=== PATIENT | female | born 1955 | race Caucasian/White ===

== ENCOUNTER 2016-06-24 08:52 | Emergency (ER) | payer OTHER ==
[~2016-06-24] VITALS: Ht 165.1 cm; Wt 83.9 kg
[~2016-06-24 08:52] MED LIST: ACIDOPHILUS1 CAP PO; BENZONATATE200 M1 PO; BIAXIN FILMTAB500 MG PO; CO-Q1060 MG PO; CYTOMEL25 MC1 PO; DELTASONE20 MG PO; DIAZEPAM5 MG PO; DIETHYLPROPION25 MG PO; FLONASE120 SPRAY/ NAS; FLUCONAZOLE150 M1 PO; HYDROXYZINE HCL50 MG PO; INDAPAMIDE2.5 M1 PO; PHENERGAN25 M1 PO; PREDNISONE 10MG10 M1 PO; PROVENTIL HFA6.7 GM INH; TESSALON PERLE100 MG PO; VITAMIN C100 M1 PO; VITAMIN C500 M3 PO; XANAX1 M1 PO; ZITHROMAX250 M2 PO; [UNRECOGNIZED DRUG - OTHER] PO
[2016-06-24 08:55] VITALS: BP 119/82
--- NOTE | 2016-06-24 09:10 | ED DYSPNEA/ASTHMA COMPLAINT ---
History of Present Illness General Chief Complaint: Upper Respiratory Sx/Fever Stated Complaint: DX WITH PNA WEDNESDAY/EAR AND THROAT PAIN,SOB 99%O2 Source: patient, family Exam Limitations: no limitations Vital Signs & Intake/Output Vital Signs & Intake/Output Vital Signs Date Time Temp Pulse Resp B/P B/P Pulse O2 O2 Flow FiO2 Mean Ox Delivery Rate 06/24 0942 95 06/24 0855 99.3 91 16 119/82 98 Room Air Allergies Coded Allergies: codeine (Severe, RASH 04/15/15) latex (Mild, RASH 04/15/15) hydromorphone (From DILAUDID) (Mild, VOMITING 04/15/15) Reconcile Medications Albuterol Sulfate (Proair Hfa) 90 MCG HFA.AER.AD 2 PUF INH Q4-6 PRN PRN wheezing Benzonatate 100 MG CAPSULE 1 CAP PO TID PRN COUGH (Reported) Cefdinir 300 MG CAPSULE 2 CAP PO DAILY ANTIBIOTIC, INFECTION (Reported) Diethylpropion HCl 25 MG TABLET 3 TAB PO DAILY THYROID (Reported) Doxycycline Hyclate 100 MG TABLET 1 TAB PO BID ANTIBIOTIC, INFECTION ( Reported) Indapamide 2.5 MG TABLET 1 TAB PO DAILY HTN (Reported) Liothyronine Sodium (Cytomel) 25 MCG TABLET 2-3 TAB PO DAILY THYROID ( Reported) Methylprednisolone. (Medrol) 4 MG TAB.DS.PK 1 DP PO AD bronchitis 6 on day 1 then reduce by one tablet daily until gone Triage Note: 60 Y/O FEMALE C/O SOB AND NAUSEA. STATES SHE WAS EVAL'D AT WALK IN ON 06/22/16 AND DIAGNOSED WITH PNEUMONIA (NO XRAY DONE); STARTED ON DOXYCYCLINE, CEFDINIR AND TESSLON PEARLS BUT REPORTS CONTINUED SOB AND NOW NAUSEA. VOICE HOARSE. SAT 97-98% RA. PT REPORTS FEVERS AT HOME, 99.3 IN TRIAGE. Triage Nurses Notes Reviewed? yes HPI: 60-year-old female with history of hypothyroid presents to ER for evaluation complaining of a four-day history of productive cough clear sputum and shortness of breath sore throat and rhinorrhea congestion, hoarse voice and sinus pressure. She states she went to an urgent care 2 days ago was diagnosed with pneumonia. She was started on doxycycline and Cefdinir and Tessalon Perles which she's been taking without any improvement. She does not smoke no chest pain no hemoptysis. The patient reports a subjective fevers chills area she has a sick contact at home with similar symptoms last week and is now improved. She states that the coughing is making her nauseous she denies any vomiting diarrhea or abdominal pain. She is not taken anything for her fever chills today. (GABO YOUNG) Past History Travel History Traveled to [place] past 21 day No Medical History Any Pertinent Medical History? 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 No (GABO YOUNG) Review of Systems Review of Systems Constitutional: Reports: see HPI. All Other Systems: Reviewed and Negative Comments Review of systems: See HPI, All other systems negative. Constitutional, no chills no fever, no malaise HEENT: No visual changes sore throat congestion, Cardiovascular: No chest pain , no palpitation Skin: no rashes, no change in skin Respiratory: dyspnea cough sputum GI: nausea no vomiting, no diarrhea, : No dysuria Muscle skeletal: No joint pain, no joint swelling, no back pain, no neck pain, Neurologic: No numbness no headache Psych: No stress no depression,. Heme/endocrine: No bruising no bleeding Immunology: No lymphadenopathy (GABO YOUNG) Physical Exam Physical Exam General Appearance: well developed/nourished, alert, awake Respiratory: chest non-tender Comments: Well-developed well-nourished person in no acute distress Head/Face: Atraumatic, no maxillary/frontal sinus tenderness, no facial swelling Eyes: PERRL, EOMI, no conjunctival injection. No nystagmus Ear:External auditory canal and Tympanic membranes clear, no erythema, no FB. Nose: atraumatic.Normal inspection: No bleeding, no septal hematoma Throat: Moist mucous membranes.pharynx is erythematous tonsillar exudate. No stridor/drooling or assymetry. No swelling or edema. Neck: Supple, no lymphadenopathy, FROM Back: Nontender, no CVA tenderness. Full range of motion Cardiovascular: Regular rate and rhythms no murmurs rubs Respiratory: Chest nontender.There were no bony deformities, no asymmetry. No respiratory distress. Patient speaking in full complete sentences. Wheezing no rhonchi no rales Abdomen: Soft, nontender nondistended Extremity: No edema, full range of motion of extremities Neuro: Alert oriented x3, motor sensory normal. There were no obvious focal neurologic abnormalities. Skin: No appreciable rash on exposed skin, skin is warm and dry. Psych: Mood and affect is normal, memory and judgment is normal. Core Measures ACS in differential dx? No Severe Sepsis Present: No Septic Shock Present: No (GABO YOUNG) Progress Differential Diagnosis: asthma, AMI, bronchitis, costochondritis, CHF, COPD, pericarditis, pulmonary embolism, pneumonia, pneumothorax Plan of Care: Orders Procedure Date/time Status AEROSOL (GEN) 06/24 936 Complete THROAT CULTURE W/QUICK STREP 06/24 916 Active DuoNeb ordered prednisone 60 by mouth Zofran 4 ODT chest x-ray ordered Case discussed with Dr. aguilar agrees with plan Discussed with patient her lab results and x-ray findings she reports to feeling improved after breathing treatment I discussed with her to continue her antibiotic I had an extensive conversation regarding need for close follow up with their primary care physician this week as well as return precautions. I answered all of their questions, they feel comfortable with the plan and follow-up care. I discussed the medications that they will receive with the patient. I gave them signs and symptoms that could indicate an adverse reaction. I have advised them to limit their activities until they can see how they respond to the medication. (GABO YOUNG) Diagnostic Imaging: Viewed by Me: Radiology Read. Discussed w/RAD: Radiology Read. Radiology Impression: PATIENT: ANKIT KLEIN PRESENT AGE: 60 PATIENT ACCOUNT NO: [id number] : 55 LOCATION: [facility] ORDERING PHYSICIAN: GABO HASTINGS SERVICE DATE: 06/24/16 EXAM TYPE: RAD - XRY- CHEST XRAY, PA AND LATERAL EXAMINATION: XR CHEST CLINICAL INFORMATION: Cough, fever and dyspnea. COMPARISON: Chest 05/11/2015. TECHNIQUE: 2 views of the chest were obtained. FINDINGS: Both lungs are fairly well-expanded and clear of acute process. Heart size and pulmonary vascularity is normal. There is mild dextroscoliosis of dorsal spine. No lytic process seen. IMPRESSION: Unremarkable chest exam. DICTATED BY: MIKE ORELLANA MD DATE/TIME DICTATED:06/24/16954 CUSTOMS IMPORT SPECIALIST:MARCY DATE/TIME TRANSCRIBED:06/24/16954 CONFIDENTIAL, DO NOT COPY WITHOUT APPROPRIATE AUTHORIZATION. <Electronically signed in Other Vendor System> SIGNED BY: MIKE ORELLANA MD 06/24/16958 Initial ED EKG: none (GABO YOUNG) Departure Departure Time of Disposition: 1035 Disposition: HOME OR SELF CARE Condition: Stable Clinical Impression Primary Impression: Bronchitis Referrals: ELLIOT MARTEL DO (PCP/Family) Additional Instructions: Continue the antibiotics as prescribed. medrol dose shari, proair inhaler as directed. follow up with your pmd tomorrow, return to the ER with any concerns These were sent to [facility] Departure Forms: Customer Survey General Discharge Information Prescriptions: Current Visit Scripts Methylprednisolone. (Medrol) 1 DP PO AD #1 DP 6 on day 1 then reduce by one tablet daily until gone Albuterol Sulfate (Proair Hfa) 2 PUF INH Q4-6 PRN PRN wheezing #1 INHAL (GABO YOUNG) PA/ARMAMENT MECHANIC Co-Sign Statement Statement: ED Attending supervision documentation- [] I saw and evaluated the patient. I have also reviewed all the pertinent lab results and diagnostic results. I agree with the findings and the plan of care as documented in the PA's/ARMAMENT MECHANIC's documentation. [x] I have reviewed the ED Record and agree with the PA's/ARMAMENT MECHANIC's documentation. [] Additions or exceptions (if any) to the PAs/ARMAMENT MECHANIC's note and plan are summarized below: [] (ARMAAN AGUILAR DO) Critical Care Note Critical Care Note Critical Care Time: non-applicable (GABO YOUNG)
--- NOTE | 2016-06-24 09:59 | RADIOLOGY REPORT ---
EXAMINATION: XR CHEST CLINICAL INFORMATION: Cough, fever and dyspnea. COMPARISON: Chest 05/11/2015. TECHNIQUE: 2 views of the chest were obtained. FINDINGS: Both lungs are fairly well-expanded and clear of acute process. Heart size and pulmonary vascularity is normal. There is mild dextroscoliosis of dorsal spine. No lytic process seen. IMPRESSION: Unremarkable chest exam.
[2016-06-24] MEDS ORDERED: DOXYCYCLINE HY100 M4 PO (10:22)
[2016-06-24] MEDS ORDERED: CEFDINIR300 M1 PO (10:22)
[2016-06-24] MEDS ORDERED: BENZONATATE100 M1 PO (10:22)
[2016-06-24] MEDS ORDERED: MEDROL4 M2 PO (10:37)
[2016-06-24] MEDS ORDERED: PROAIR HFA8.5 GM INH (10:37)
== END 2016-06-24 11:16 ==
LOC: ERH 08:52
DX: J40 Bronchitis, not specified as acute or chronic (principal); J02.9 Acute pharyngitis, unspecified
CPT/HCPCS: 1263; J3101

== ENCOUNTER 2016-07-01 18:59 | Emergency (ER) | payer OTHER ==
[~2016-07-01] VITALS: Ht 166.4 cm; Wt 85.3 kg
[~2016-07-01 18:59] MED LIST changes: +BENZONATATE100 M1 PO; +CEFDINIR300 M1 PO; +DOXYCYCLINE HY100 M4 PO; +MEDROL4 M2 PO; +PROAIR HFA8.5 GM INH
--- NOTE | 2016-07-01 19:51 | ED INFLUENZA/URI COMPLAINT ---
History of Present Illness General Chief Complaint: Upper Respiratory Sx/Fever Stated Complaint: URI/SOB Source: patient Exam Limitations: no limitations Vital Signs & Intake/Output Vital Signs & Intake/Output Vital Signs Date Time Temp Pulse Resp B/P B/P Pulse O2 O2 Flow FiO2 Mean Ox Delivery Rate 07/01 2125 97.0 89 18 106/56 97 Room Air Room Air 07/01 1907 96.5 99 16 119/75 97 Room Air ED Intake and Output 07/02 0000 07/01 1200 Intake Total Output Total Balance Patient 188 lb Weight Weight Reported by Patient Measurement Method Allergies Coded Allergies: codeine (Severe, RASH 04/15/15) latex (Mild, RASH 04/15/15) hydromorphone (From DILAUDID) (Mild, VOMITING 04/15/15) Reconcile Medications Albuterol Sulfate (Proair Hfa) 90 MCG HFA.AER.AD 2 PUF INH Q4-6 PRN PRN wheezing Azithromycin (Zithromax) 250 MG TABLET 1 DP PO AD BRONCHITIS 2 the first day followed by 1 for days 2-5 Benzonatate 100 MG CAPSULE 1 CAP PO TID PRN COUGH (Reported) Cefdinir 300 MG CAPSULE 2 CAP PO DAILY ANTIBIOTIC, INFECTION (Reported) Diethylpropion HCl 25 MG TABLET 3 TAB PO DAILY THYROID (Reported) Doxycycline Hyclate 100 MG TABLET 1 TAB PO BID ANTIBIOTIC, INFECTION ( Reported) Hydrocodone/Chlorphen P-Stirex (Tussionex Pennkinetic Susp) 10 MG-8 MG/5 ML [place].ER.12H 5 ML PO Q12HR PRN COUGH Indapamide 2.5 MG TABLET 1 TAB PO DAILY HTN (Reported) Liothyronine Sodium (Cytomel) 25 MCG TABLET 2-3 TAB PO DAILY THYROID ( Reported) Methylprednisolone. (Medrol) 4 MG TAB.DS.PK 1 DP PO AD bronchitis 6 on day 1 then reduce by one tablet daily until gone Triage Note: PT STATES SHE WAS SEEN ON THE OF THIS MONTH AND STATES SHE IS NOT BETTER. PT COUGHING AND STATES SHE GETS SOB JUST WALKING A FEW STEPS. PT STATES SHE RAN OUT OF [place] THE MEDS THAT SHE WAS GIVEN WHEN SHE WAS SEEN HERE LAST. PT SCANT AMOUNT OF SPUTUM. Triage Nurses Notes Reviewed? yes Onset: Gradual Duration: day(s): (10) Timing: no prior history Severity: moderate Severity Numbers: 8 Prior Episodes/Possible Cause: occassional episodes No Modifying Factors: none Associated Symptoms: cough HPI: Patient is a 60-year-old female presenting to the emergency department chief complaint of dry cough, shortness of breath and feeling tired for the past days. She was initially seen at a walk-in clinic where she was clinically diagnosed with pneumonia. On doxycycline and Ceftin ear. Symptoms did not improve over the next couple days if she decided come to the emergency department for evaluation. They di an x-ray at that time and told her that there is no pneumonia seen on x-ray. She continued antibiotics. She was also put on a course of steroids and given an inhaler. She reports that the cough is still persistent. No relief with Tessalon Perles. She did get relief with NyQuil last night. No fevers or chills. Positive malaise. Denies any abdominal pain. No nausea vomiting. No chest pain. No palpitations. (HASEEB ALEMAN) Past History Travel History Traveled to [place] past 21 day No Medical History Any Pertinent Medical History? 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 No (HASEEB ALEMAN) Review of Systems Review of Systems Constitutional: Reports: malaise. Comments Review of systems: See HPI, All other systems negative. Constitutional, no chills fever or weight loss HEENT: No visual changes no sore throat Cardiovascular: No chest pain ,palpitation , orthopnea or ankle swelling Skin, no jaundice no rashes Respiratory: No dyspnea sputum or hemoptysis GI: No nausea no vomiting : No dysuria No hematuria Muscle skeletal: no back pain, no neck pain, Neurologic: No numbness no confusion Psych: No stress anxiety or depression,. Heme/endocrine: No bruising no bleeding no polyuria or polydipsia Immunology: No splenectomy or history of AIDS (HASEEB ALEMAN) Physical Exam Physical Exam General Appearance: well developed/nourished, no apparent distress, alert, awake , comfortable Ears, Nose, Throat: pnd Comments: Well-developed well-nourished person in no acute distress HEENT: . Pupils equally round and reactive to light and accommodation. Nose is atraumatic. External auditory canal and Tympanic membranes clear. Pharynx normal. Postnasal drip present. No swelling or edema. Neck: NORMAL INSPECTION Back: Nontender Cardiovascular: Regular rate and rhythms no murmurs rubs or gallops, normal JVP Respiratory: Chest nontender. No respiratory distress.breath sounds clear to auscultation bilaterally. Dry reactive cough on exam. Extremity: No edema Neuro: Alert oriented x3 Skin: No appreciable rash on exposed skin, skin is warm and dry. Psych: Mood and affect is normal, memory and judgment is normal. Core Measures Severe Sepsis Present: No Septic Shock Present: No (SEYMOUR HASTINGS,HASEEB) Progress Differential Diagnosis: pneumonia, pharyngitis, sinusitis, BRONCHITIS Plan of Care: Current Medications Sig/Nohemy Start time Last Medication Dose Stop Time Status Admin Acetaminophen/ 10 ML ONCE ONE 07/01 2044 AC Hydrocodone Bitart 07/01 2045 (Hycet) Guaifenesin/ 10 ML ONCE ONE 07/01 2044 AC Dextromethorphan 07/01 2045 (Robitussin Dm) Diagnostic Imaging: Viewed by Me: Radiology Read. Discussed w/RAD: Radiology Read. Radiology Impression: PATIENT: ANKIT KLEIN PRESENT AGE: 60 PATIENT ACCOUNT NO: [id number] : 55 LOCATION: [facility] ORDERING PHYSICIAN: HASEEB HASTINGS SERVICE DATE: 07/01/16 EXAM TYPE: RAD - XRY-CHEST XRAY, PA AND LATERAL EXAMINATION: XR CHEST CLINICAL INFORMATION: Cough COMPARISON: 06/24/2016 TECHNIQUE: 2 views of the chest were obtained. FINDINGS: The lungs are well expanded. There is no focal consolidation, edema, or effusion. No pneumothorax. The cardiomediastinal silhouette is within normal limits. No acute osseous abnormality. Mild degenerative changes of the spine. IMPRESSION: No acute pulmonary findings. DICTATED BY: SOLEDAD MELO,FATOUMATA DATE /TIME DICTATED:07/01/162036 AUTOMATION CONTROLS EXPERT:MARCY DATE/TIME TRANSCRIBED: 07/01/162036 CONFIDENTIAL, DO NOT COPY WITHOUT APPROPRIATE AUTHORIZATION. Initial ED EKG: none Comments: Patient has had Vicodin in the past without a problem. Patient was given Robitussin-DM along with hycoden, because we did not have tussionex available. Patient had no reaction to the hycoden. Patient will be discharged with prescriptions for Tussionex and azithromycin. She will continue using albuterol inhaler. She'll return for worsening symptoms or concerns. She was informed of x-ray results. Likely continuation of bronchitis. (HASEEB ALEMAN) Departure Departure Time of Disposition: 2120 Disposition: HOME OR SELF CARE Condition: Stable Clinical Impression Primary Impression: Bronchitis Referrals: ELLIOT MARTEL DO (PCP/Family) Additional Instructions: Follow-up with your primary care physician collimating appointment. Increase fluids. Take antibiotics as prescribed. Take off on occasion as directed. Continue using inhaler as directed. Departure Forms: Customer Survey General Discharge Information Prescriptions: Current Visit Scripts Hydrocodone/Chlorphen P-Stirex (Tussionex Pennkinetic Susp) 5 ML PO Q12HR PRN COUGH #100 ML Azithromycin (Zithromax) 1 DP PO AD #6 TAB 2 the first day followed by 1 for days 2-5 (HASEEB ALEMAN) PA/COLLEGE ADMINISTRATOR Co-Sign Statement Statement: ED Attending supervision documentation- [] I saw and evaluated the patient. I have also reviewed all the pertinent lab results and diagnostic results. I agree with the findings and the plan of care as documented in the PA's/COLLEGE ADMINISTRATOR's documentation. [X] I have reviewed the ED Record and agree with the PA's/COLLEGE ADMINISTRATOR's documentation. [] Additions or exceptions (if any) to the PAs/COLLEGE ADMINISTRATOR's note and plan are summarized below: [] (KB MELO,UZAIR)
--- NOTE | 2016-07-01 20:41 | RADIOLOGY REPORT ---
EXAMINATION: XR CHEST CLINICAL INFORMATION: Cough COMPARISON: 06/24/2016 TECHNIQUE: 2 views of the chest were obtained. FINDINGS: The lungs are well expanded. There is no focal consolidation, edema, or effusion. No pneumothorax. The cardiomediastinal silhouette is within normal limits. No acute osseous abnormality. Mild degenerative changes of the spine. IMPRESSION: No acute pulmonary findings.
[2016-07-01] MEDS ORDERED: TUSSIONEX PENN115 ML PO (20:53)
[2016-07-01] MEDS ORDERED: ZITHROMAX250 M2 PO (20:53)
[2016-07-01 21:26] VITALS: BP 106/56
== END 2016-07-01 21:37 ==
LOC: ERH 18:59
DX: J40 Bronchitis, not specified as acute or chronic (principal)